=== PATIENT | male | born 1940 | race Caucasian/White ===

== ENCOUNTER → 2021-01-15 02:09 | Outpatient (CLI) | payer MEDICARE, SELFPAY ==
[2021-01-16 14:53] LABS: SARS-CoV-2 RNA PCR Negative
== END ==
PROVIDERS: PCP Family Medicine; Visit Provider Internal Medicine Cardiovascular Disease
DX: Z01.812 Encounter for preprocedural laboratory examination (principal); Z20.822 Contact with and (suspected) exposure to COVID-19
CPT/HCPCS: C9803; U0003; U0005

== ENCOUNTER 2021-01-18 02:52 | Day surgery (SDC) | payer MEDICARE, SELFPAY ==
[2021-01-17 16:28] VITALS: BMI 29.0
[2021-01-18] VITALS (15 sets, daily range): BP systolic 131–172; BP diastolic 58–86; PULSE 45–59; RESP 11–18; TEMP 36.4–36.6; O2SAT 95–99; BMI 28.5
--- NOTE | 2021-01-18 09:26 | WPDMODSED ---
Moderate Sedation Note-Pt Data Patient Data Allergies Allergy/AdvReac Type Severity Reaction Status Date / Time losartan Allergy Unknown dystonic Verified 01/17/21 16:33 reaction amoxicillin [From Augmentin] Allergy Rash Verified 01/17/21 16:33 clavulanic acid Allergy Rash Verified 01/17/21 16:33 [From Augmentin] Home Medications Medication Instructions Recorded Confirmed Type polyethylene glycol 3350 17 gram 17 gm PO DAILY 11/03/19 01/17/21 History oral powder packet acetaminophen 650 mg 650 mg PO Q12H 03/04/20 01/17/21 History tablet,extended release aspirin 81 mg tablet,delayed 81 mg PO QAM tablet 03/04/20 01/17/21 History release fluticasone propionate 50 1 spray NASAL QPM ml 03/04/20 01/17/21 History mcg/actuation nasal spray,suspension multivitamin 1 tablet PO QAM tablet 03/04/20 01/17/21 History vit C 250 mg-vit E 200 unit-zinc 1 cap PO DAILY cap 03/04/20 01/17/21 History ox 12.5 rp-hkajaz-lauqth-zeax capsule terazosin 5 mg capsule See Rx Instructions .ROUTE 05/18/20 01/17/21 Rx .COMPLEX #180 cap bisoprolol 10 1 tablet PO QAM #90 tablet 10/11/20 01/17/21 Rx mg-hydrochlorothiazide 6.25 mg tablet amlodipine 10 mg tablet 10 mg PO DAILY 11/30/20 01/17/21 History atorvastatin 40 mg tablet 40 mg PO DAILY 11/30/20 01/17/21 History famotidine 20 mg tablet 20 mg PO DAILY 11/30/20 01/17/21 History nitroglycerin 0.4 mg sublingual 0.4 mg SUBLINGUAL Q5M PRN #180 11/30/20 01/17/21 Rx tablet tablet acidophilus-pectin, citrus 1 cap PO DAILY 01/17/21 01/17/21 History [Acidophilus Probiotic] calcium carbonate-vit D3-min 1 tablet PO DAILY 01/17/21 01/17/21 History carboxymethylcellulose sodium 1 drp OPHTHALMIC (EYE) DAILY 01/17/21 01/17/21 History [Refresh] loperamide 2 mg PO Q6H PRN 01/17/21 01/17/21 History omega 2-rvu-cjv-fish oil [Fish Oil] 1 cap PO DAILY 01/17/21 01/17/21 History sodium chloride 5 % 1 drp EACH EYE DAILY 01/17/21 01/17/21 History Current Medications: Active Medications Sodium Chloride (Normal Saline Iv) 500 mls @ 100 mls/hr IV CONT .Q5H [facility] Sedation/Anesthesia: No previous sedation/anesthesia problems (including family history). [facility] Past Medical History Medical History (Reviewed 11/30/20 @ 11:59 by Mary Ann Fuentes [facility]) Cataract Hernia 2007 Surgical History Surgical History (Reviewed 11/30/20 @ 11:59 by Mary Ann Fuentes [facility]) H/O colonoscopy 2017 H/O transurethral resection of prostate Family History Family History (Reviewed 11/30/20 @ 11:59 by Mary Ann Fuentes [facility]) Father Hypertension Family history of coronary artery disease Family history of congestive heart failure Grandparent Hypertension Cerebrovascular accident Family history of malignant neoplasm of stomach Family history of malignant neoplasm Family history of coronary artery disease Mother Hypertension Family history of coronary artery disease Sibling Hypertension Family history of coronary artery disease Social History Social History (Reviewed 11/30/20 @ 11:59 by Mary Ann Fuentes [facility]) Years smoked: 19 Smoking status: Former smoker Alcohol intake: current Living arrangements: with family Gender identity (if verbalized by the patient): Male Sexual Orientation (if Verbalized by the Patient): Straight or Heterosexual Spiritual care concerns: No Mod Sed Physical Exam Physical Exam Pre Procedural Exam: Normal: Airway Hours since solid foods: 10 Hours since liquid intake: 10 Internal Medicine - PN: Obj Da Meds/Results Medications: Active Medications Generic Name Dose Route Start Last Admin Trade Name Freq PRN Reason Stop Dose Admin Sodium Chloride 500 mls @ 100 mls/hr 01/18/21 08:30 Normal Saline Iv IV CONT .Q5H YAJAIRA ASA Classification/Sedation ASA Classification/Sedation ASA Class: III Emergent: No Risks: Risks, benefits and alternatives explained and patient/family accepted plan for
--- NOTE | 2021-01-18 09:27 | WPDHPUPDATE1 ---
History and Physical Update Update Date/Time: 01/18/21 09:27 History and Physical has been reviewed, including an updated exam of the patient. There are NO changes in the patient's condition. Risks, benefits, and alternatives have been discussed and questions answered. Patient agrees to proceed with procedure.
--- NOTE | 2021-01-18 10:37 | WPDCARDPROC ---
Cardiac Cath Procedure Note Date of procedure:: 01/18/21 Performing physician:: Casey Osullivan MD Procedure Procedure note:: LEFT HEART CATHETERIZATION AND CORONARY ANGIOGRAM REPORT DATE OF PROCEDURE:01/18/2021 INDICATION FOR PROCEDURE: Angina, abnormal stress test BRIEF CLINICAL HISTORY: 80-year-old male with hypertension, dyslipidemia and BPH. Patient has been experiencing episodes of substernal chest discomfort, both exertional and nonexertional. His recent MPI from 11/22/2020 showed ECG portion of the stress test positive for ischemia; partially reversible defect involving apical, septal, inferoseptal leon; LVEF 63%. Patient has been on optimal tolerable medical treatment, and continued to have episodes of chest discomfort. Therefore, he was brought to the dental laboratory supervisor for coronary angiogram. Benefits and risks of the procedure were discussed with the patient in depth, and informed consent was obtained prior to the procedure. Risks of the procedure include but are not limited to vascular complications including groin hematoma, retroperitoneal bleed, vessel perforation; periprocedural ND, cardiac arrhythmias, stroke, contrast induced nephropathy, and . After discussing all the benefits, risks and alternatives, patient was willing to proceed with the procedure. PROCEDURES PERFORMED: 1. Left heart catheterization- Selective left and right coronary angiogram; left ventriculogram and hemodynamic assessment 2. Moderate sedation-CPT code 69321 MODERATE SEDATION: Midazolam 1 mg; fentanyl 25 mcg; Start time 0959 , Stop time 1028 ; Total bgja-fx-efwo time 29 minutes; Corinna Thompson RN was trained observer for moderate sedation. ACCESS SITE: Right common femoral artery PROCEDURE NOTE: After obtaining informed consent, patient was brought to catheterization lab and prepped and draped in a usual sterile manner. After local anesthesia with lidocaine, right common femoral artery access was taken with micropuncture needle followed by insertion of a 5 [place] sheath. Selective left and right coronary angiogram was performed using 5 [place] JL4 and JR4 catheters respectively. Orthogonal views were taken. Next, a 5 [place] pigtail catheter was advanced in the LV cavity and was flushed with normal saline. LV pressure measurement was performed. After this, left ventriculogram was performed. The catheter was flushed again, and gradient across the aortic valve was measured on the pullback of the catheter. The 5 [place] sheath was secured in place which will be taken out in the dental laboratory supervisor holding area, manual pressure was used for local hemostasis. Patient tolerated procedure well without any immediate procedure related complications. FINDINGS: LEFT MAIN CORONARY: the left main coronary artery is a medium to large caliber vessel, minor irregularities seen in the distal segment. LEFT ANTERIOR DESCENDING ARTERY: The LAD is a medium caliber vessel in the proximal most segment; divides into 2 branches in a bifurcating fashion. The proximal branch /diagonal branch is a medium to large caliber vessel with minor irregularities in the proximal segment. The distal/ main branch which goes towards the LV apex is has subtotal occlusion distal to the major diagonal branch and fills slowly and appears diminutive, probably due to the underfilling of the vessel. LEFT CIRCUMFLEX ARTERY: The left circumflex artery is a medium caliber vessel, gives rise to medium size OM 1 branch with mild 20-40% stenosis in the proximal segment, and small size OM 2 branch. RIGHT CORONARY ARTERY: RCA is a medium to large caliber vessel with mild diffuse disease in the mid-distal segment. The vessel gives rise to medium-size PDA branch and diminutive PLV branch. LEFT VENTRICULOGRAM: ventricular ectopy was seen during left ventriculogram; Overall LV systolic function is preserved, ejection fraction about 60-65%; LVEDP 18 mmHg. HEMODYNAMIC ASSESSMENT: Opening pressure 165/63 mmHg , closi
--- NOTE | 2021-01-18 17:23 | SUR.PHASEII ---
1720 IV d/c'd cath intact, pressure applied. D/C instructions reviewed with patient and his , questions answered. 172 Pt transported to [facility] via wheelchair, where his drove him home in a private vehicle.
== END 2021-01-18 17:27 | disposition home or self-care (01) ==
PROVIDERS: PCP Family Medicine; Visit Provider Internal Medicine Cardiovascular Disease
PROC: 4A023N7 Measurement of Cardiac Sampling and Pressure, Left Heart, Percutaneous Approach (ICD-10-PCS; CPT 93452; principal; 2021-01-18 09:30)
DX: I25.10 Atherosclerotic heart disease of native coronary artery without angina pectoris (principal); R94.39 Abnormal result of other cardiovascular function study; R07.9 Chest pain, unspecified; I10 Essential (primary) hypertension; E78.5 Hyperlipidemia, unspecified; Z87.891 Personal history of nicotine dependence
CPT/HCPCS: 93458; C1887; C1894; C9803; J0461; J1644; J2250; J3010; J7040; U0003; U0005

== ENCOUNTER 2022-05-17 14:02 | Outpatient (CLI) | payer MEDICARE, SELFPAY ==
--- NOTE | ~2022-05-17 | US_ITS ---
EXAMINATION: US art doppler w press BREANN DUTTA DATE: 05/17/2022 15:56 INDICATION: Right leg claudication. TECHNIQUE: Segmental pressures and plethysmographic and Doppler waveforms of the brachial and lower e xtremity arteries were obtained. COMPARISON: None. FINDINGS: Right and left brachial artery pressures of 135 mm Hg and 136 mm Hg, respectively, are concordant (no rmal difference <= 30 mmHg). The right high-thigh pressure index is 1.29 (normal > 1.2). The right ankle-brachial index (TEODORA) is 0 .70 (normal >= 0.9-1.0). The right great toe-brachial index (TBI) is 0.51 (normal >= 0.65). The right lower extremity segmental pressure gradients are increased between the lower thigh and below-knee me asurements and between the below knee and ankle measurements (normal gradients <= 20-30 mmHg between adjacent levels on the same leg or the same levels on the two legs). Arterial Doppler waveforms are t riphasic in common femoral artery and biphasic from superficial femoral artery to the ankle. The left high-thigh pressure index is 1.23. The left TEODORA is 1.06. The left TBI is 0.65. Arterial Dopp ler waveforms are biphasic from common femoral artery to the ankle. IMPRESSION: 1. Moderately decreased right TEODORA, consistent with right-sided arterial occlusive disease. Reviewed, dictated and finalized at location A. IMPRESSION: 1. Moderately decreased right TEODORA, consistent with right-sided arterial occlusi ve disease.
== END 2022-05-17 14:03 | disposition home or self-care (01) ==
PROVIDERS: PCP Family Medicine; Visit Provider Internal Medicine Cardiovascular Disease
DX: I73.9 Peripheral vascular disease, unspecified (principal)
CPT/HCPCS: 93923

== ENCOUNTER 2022-08-09 12:32 | Outpatient (CLI) | payer MEDICARE, SELFPAY ==
--- NOTE | ~2022-08-09 | XR_ITS ---
XR ankle LT min 3V DATE: 08/09/2022 13:13 INDICATION: Fall yesterday. Left ankle diffuse pain TECHNIQUE: 4 views of left ankle COMPARISON: None FINDINGS: There is mild lateral soft tissue swelling. No fracture or dislocation of the ankle or disruption of the ankle mortise is detected. Moderate plantar and posterior calcaneal enthesopathy without associated erosive change or periostiti s. IMPRESSION: Mild lateral soft tissue swelling Plantar and posterior calcaneal enthesopathy Reviewed, dictated and finalized at location A. MOGRAPH CHIEF
--- NOTE | ~2022-08-09 | XR_ITS ---
XR wrist RT min 3V DATE: 08/09/2022 13:14 INDICATION: Fall yesterday. Posterior right wrist pain TECHNIQUE: 4 views COMPARISON: None FINDINGS: There is a comminuted intra-articular virtually nondisplaced fracture of the distal radius. The distal ulna appears intact. Radiocarpal alignment is preserved. There is osteoarthritis at the triscaphe and first carpometacarpal and particularly second and third metacarpophalangeal joints and interphalangeal joint of the first digit. IMPRESSION: Comminuted intra-articular virtually nondisplaced fracture of distal radius Polyarticular osteoarthritis Reviewed, dictated and finalized at location A. FACTURER REPRESENTATIVE IMPRESSION: Comminuted intra-articular virtually nondisplaced fracture of dista l radius Polyarticular osteoarthritis
--- NOTE | ~2022-08-09 | XR_ITS ---
XR sacrum coccyx min 2V DATE: 08/09/2022 13:13 INDICATION: Fall yesterday. Pain when laying down at sacrum and coccyx TECHNIQUE: AP, angled AP and lateral views of sacrum and coccyx COMPARISON: None FINDINGS: The pubic symphysis and sacroiliac joints are intact. No sacral or coccygeal fracture or chica ne destruction is detected. Moderately severe degenerative disc disease is noted at L2-3, L3-4, L4-5. Prominent calcification of the abdominal aorta and iliac arteries. Moderate bilateral hip osteoarthritis. IMPRESSION: No sacral or coccygeal fracture is detected Reviewed, dictated and finalized at location A. TECHNICIAN
== END 2022-08-09 12:33 | disposition home or self-care (01) ==
PROVIDERS: PCP Family Medicine; Visit Provider Nurse Practitioner
DX: M53.3 Sacrococcygeal disorders, not elsewhere classified (principal); M19.031 Primary osteoarthritis, right wrist; M19.072 Primary osteoarthritis, left ankle and foot; M77.32 Calcaneal spur, left foot
CPT/HCPCS: 72220; 73110; 73610

== ENCOUNTER → 2022-10-05 11:25 | Outpatient (CLI) | payer MEDICARE, SELFPAY ==
--- NOTE | ~2022-10-05 | XR_ITS ---
Left foot Technique: AP and lateral views were obtained. Clinical History: Pain Findings: No acute fracture or dislocation is seen. Osseous alignment is anatomic. Possible pes cavus deformity There is advanced degenerative change of the first metatarsophalangeal joint. Remaining narayan int spaces are preserved. Soft tissues are unremarkable. Impression: No acute fracture or dislocation. Advanced degenerative change of the first metatarsophalangeal joint. Possible pes cavus deformity. Reviewed, dictated and finalized at location M. DING ANALYST/SUPERVISOR Impression: No acute fracture or dislocation. Advanced degenerative change of the first metatarsophalangeal joint. Possible pes cavus deformity.
--- NOTE | ~2022-10-05 | XR_ITS ---
Left ankle Technique: AP, oblique, and lateral views were obtained. Clinical History: Pain Findings: No acute fracture or dislocation is seen. Osseous alignment is anatomic. Ankle mortise and other visualized joint spaces are preserved. Soft tissues are otherwise unremarkable. Impression: Unremarkable left ankle. Reviewed, dictated and finalized at location . ER SOFTWARE ENGINEER Impression: Unremarkable left ankle.
== END ==
PROVIDERS: PCP Family Medicine; Visit Provider Nurse Practitioner
DX: M19.072 Primary osteoarthritis, left ankle and foot (principal)
CPT/HCPCS: 73610; 73620

== ENCOUNTER → 2022-10-05 14:13 | Outpatient (CLI) | payer MEDICARE, SELFPAY ==
--- NOTE | ~2022-10-05 | US_ITS ---
Duplex Sonography of the left extremity: Indication: Edema Findings: Sagittal and transverse B-mode images as well as color-flow imaging were performed on the l eft femoral and popliteal veins. B-mode examination was done without and with compression in the tra nsverse plane. There is good visualization of the common femoral, proximal profunda femoral, superfi cial femoral, greater saphenous, and popliteal veins. Normal flow was seen on color-flow imaging. No rmal compressibility was demonstrated. Left posterior tibial and peroneal veins also appear patent. Impression: No evidence of deep vein thrombosis involving the left lower extremity. Reviewed, dictated and finalized at location . ORATE DEVELOPMENT OFFICER Impression: No evidence of deep vein thrombosis involving the left lower extremity.
== END ==
PROVIDERS: PCP Nurse Practitioner; Visit Provider Nurse Practitioner
DX: R60.0 Localized edema (principal)
CPT/HCPCS: 93971

== ENCOUNTER 2023-02-16 15:30 | Emergency (ER) | payer MEDICARE, SELFPAY ==
--- NOTE | ~2023-02-16 | XR_ITS ---
EXAMINATION: XR ankle LT min 3V DATE: 02/16/2023 16:55 INDICATION: Left ankle pain and swelling TECHNIQUE: Anteroposterior, lateral, mortise, and additional oblique view of the ankle were obtained. COMPARISON: None. FINDINGS: Bone alignment is normal. There is no fracture. There is soft tissue swelling of ankle. Pos terior and plantar calcaneal enthesophytes are noted. IMPRESSION: 1. Ankle soft tissue swelling without acute osseous abnormality. Reviewed, dictated and finalized at location F.
[2023-02-16 15:59] VITALS: BP 185/97; PULSE 60; RESP 17; TEMP 36.4; O2SAT 97
--- NOTE | 2023-02-16 17:14 | ED.GENADULT ---
HPI - General Adult General Chief complaint: Extremity Injury, Lower Stated complaint: left foot swollen x 1 week Time Seen by Provider: 02/16/23 16:19 History of Present Illness HPI narrative: this 82-year-old male patient with significant past medical history of left lower extremity edema, wrist fracture, coronary artery disease, hypertension, CKD, Crohn's disease, BPH, hyperlipidemia and prediabetes presents to the emergency room requesting that his left ankle be re-evaluated. He reportedly tripped over his dog 2-3 months ago and has had intermittent edema ever since then in the left lower extremity. Patient notes that he was evaluated when the injury initially occurred and there was no noted fracture of the ankle. Since then with the continued swelling approximately 1 month ago he had a DVT ruled out. Patient states that the swelling in the ankle goes away with rest and elevation, however as the day goes on it continues to swell. Patient notes that last night when he woke up he did have some pain higher up in the leg as well, but cannot identify exactly where the pain was. He denies any erythema, Bruising,palpable cord and no shortness of breath. He denies any chest pain. patient states he would just like to have a recheck to make sure nothing is wrong. Related Data Home Medications Medication Instructions Recorded Confirmed polyethylene glycol 3350 17 gram 17 gm PO DAILY 11/03/19 11/30/22 oral powder packet (Miralax) acetaminophen 650 mg 650 mg PO Q12H 03/04/20 11/30/22 tablet,extended release (Tylenol 8 Hour) aspirin 81 mg tablet,delayed 81 mg PO QAM 03/04/20 11/30/22 release fluticasone propionate 50 1 spray intranasal QPM 03/04/20 11/30/22 mcg/actuation nasal spray,suspension (Flonase Allergy Relief) multivitamin 1 tablet PO QAM 03/04/20 11/30/22 vit C 250 mg-vit E 200 unit-zinc 1 cap PO DAILY 03/04/20 11/30/22 ox 12.5 bi-sicvbp-dlzzjv-zeax capsule (ICaps AREDS2) amlodipine 10 mg tablet 10 mg PO DAILY 11/30/20 11/30/22 famotidine 20 mg tablet (Pepcid) 20 mg PO DAILY 11/30/20 11/30/22 acidophilus 100 million 1 cap PO DAILY 01/17/21 11/30/22 cell-pectin, citrus 10 mg capsule calcium carb 600 mg(1,500 mg)-vit 1 tablet PO DAILY 01/17/21 11/30/22 D3 200 unit-minerals chewable tablet carboxymethylcellulose sodium 1 % 1 drp ophthalmic (eye) DAILY 01/17/21 11/30/22 eye liquid gel drops omega 3-dfp-zvi-fish oil 1,200 mg 1 cap PO DAILY 01/17/21 11/30/22 (144 mg-216 mg) capsule (Fish Oil) sodium chloride 5 % 1 drp EACH EYE DAILY 01/17/21 11/30/22 atorvastatin 40 mg tablet 80 mg PO DAILY 07/11/21 11/30/22 cilostazol 100 mg tablet 100 mg PO BID 08/01/22 11/30/22 melatonin 3 mg capsule 3 mg PO QHS 10/05/22 11/30/22 Allergies Allergy/AdvReac Type Severity Reaction Status Date / Time losartan Allergy Unknown dystonic Verified 11/30/22 13:08 reaction amoxicillin [From Augmentin] Allergy Rash Verified 11/30/22 13:08 clavulanic acid Allergy Rash Verified 11/30/22 13:08 [From Augmentin] Review of Systems Review of Systems: Full 12 point review of systems was performed and is otherwise negative except as noted in HPI. All systems reviewed & are unremarkable except as noted in HPI and below PMFSH Past Medical History Medical History Cataract (~2018) 2017 cataract 2018 cataract Hernia (~2007) 2007 Surgical History Surgical History H/O colonoscopy 2017 H/O transurethral resection of prostate Hx of tonsillectomy (~1948) Family History Family History Father Hypertension Family history of coronary artery disease Family history of congestive heart failure Grandparent Hypertension Cerebrovascular accident Family history of malignant neoplasm of stomach Family history of malignant neop
[2023-02-16 17:45] LABS: D Dimer 0.51 ug/mL (<0.48)
== END 2023-02-16 18:45 | disposition home or self-care (01) ==
PROVIDERS: Emergency Provider Nurse Practitioner Adult Health; PCP Nurse Practitioner
DX: R60.0 Localized edema (principal)
CPT/HCPCS: 36415; 73610; 85380; 99283

== ENCOUNTER 2023-07-09 13:12 | Outpatient (CLI) | payer MEDICARE, SELFPAY ==
[2023-07-09 20:26] LABS: Alanine Aminotransferase 30 U/L (6-50); Albumin Level 4.1 g/dL (3.5-5.1); Alkaline Phosphatase 72 U/L (38-126); Anion Gap 7 mmol/L (8-16); Aspartate Amino Transferase 59 U/L (17-59); Blood Urea Nitrogen 21 mg/dL (9-20); Calcium 8.6 mg/dL (8.4-10.2); Carbon Dioxide 26 mmol/L (22-30); Chloride 106 mmol/L (98-107); Cholesterol 102 mg/dL (0-200); Estimated Glomerular Filt Rate 58; Glucose 116 mg/dL (65-110); HDL Direct 45 mg/dL; Potassium 3.7 mmol/L (3.4-5.0); Sodium 139 mmol/L (137-145); Triglycerides 89 mg/dL (<150)
[2023-07-09 20:37] LABS: LDL Cholesterol Direct 38 mg/dL
[2023-07-09 22:53] LABS: Hemoglobin A1C 5.7 % (<5.7)
== END 2023-07-09 13:13 | disposition home or self-care (01) ==
LOC: ANHGOSHLAB 13:14
PROVIDERS: PCP Nurse Practitioner; Visit Provider Nurse Practitioner
DX: E78.2 Mixed hyperlipidemia (principal); N18.30 Chronic kidney disease, stage 3 unspecified; R73.03 Prediabetes
CPT/HCPCS: 36415; 80053; 80061; 83036

== ENCOUNTER 2023-11-12 11:24 | Outpatient (CLI) | payer MEDICARE, SELFPAY ==
[2023-11-12 20:12] LABS: Alanine Aminotransferase 27 U/L (6-50); Alkaline Phosphatase 75 U/L (38-126); Anion Gap 3 mmol/L (8-16); Aspartate Amino Transferase 36 U/L (17-59); Blood Urea Nitrogen 25 mg/dL (9-20); Calcium 8.5 mg/dL (8.4-10.2); Carbon Dioxide 27 mmol/L (22-30); Chloride 109 mmol/L (98-107); Cholesterol 93 mg/dL (0-200); Estimated Glomerular Filt Rate > 60; Glucose 112 mg/dL (65-110); HDL Direct 44 mg/dL; Potassium 3.4 mmol/L (3.4-5.0); Sodium 139 mmol/L (137-145); Triglycerides 69 mg/dL (<150)
[2023-11-12 20:23] LABS: LDL Cholesterol Direct 45 mg/dL
[2023-11-12 21:56] LABS: Hemoglobin A1C 6.2 % (<5.7)
== END 2023-11-12 11:25 | disposition home or self-care (01) ==
LOC: ANHGOSHLAB 11:26
PROVIDERS: PCP Family Medicine; Visit Provider Nurse Practitioner
DX: E78.2 Mixed hyperlipidemia (principal); R73.03 Prediabetes
CPT/HCPCS: 36415; 80053; 80061; 83036

== ENCOUNTER 2023-12-14 14:29 | Outpatient (CLI) | payer MEDICARE, SELFPAY ==
--- NOTE | 2023-12-14 14:47 | ECHO_ITS ---
Patient Info Name: Óscar Orourke Age: 83 years : 1940 Gender: Male Ht: 74 in Wt: 225 lbs BSA: 2.33 m2 HR: 62 bpm BP: 150 / 72 mmHg Technical Quality: Fair Exam Date: 12/14/2023 3:12 PM Exam Location: Echo Lab Patient Status: Outpatient Admit Date: 12/14/2023 Staff Ordering Physician: Sissy Eldridge Exercise Specialist: Jp Gutiérrez RDCS Attending Provider: Sissy Eldridge Referring Physician: Chente DOMINGUEZ; Exam Type: CA echo doppler color flow Study Info Indications R07.9 - Chest pain, unspecified Complete two-dimensional, color flow and Doppler transthoracic echocardiogram is performed. Summary 1. Complete two-dimensional, color flow and Doppler transthoracic echocardiogram is performed. 2. Left ventricular chamber dimension is normal. 3. Left ventricular systolic function is normal, estimated at 60-65%. 4. The left ventricular diastolic function is grade I diastolic dysfunction. 5. E/e' 14 is mildly elevated. 6. Left atrial chamber dimension is mildly enlarged. 7. There is mild mitral valve regurgitation. 8. No pulmonary hypertension, estimated pulmonary arterial systolic pressure is 26 mmHg. 9. There is trace pulmonic regurgitation. Left Ventricle E/e' 14 is mildly elevated. Left ventricular chamber dimension is normal. Left ventricular systolic function is normal, estimated at 60-65%. The left ventricular diastolic function is grade I diastolic dysfunction. Right Ventricle Right ventricular systolic function is normal and with normal TAPSE 2.4 cm. Right ventricular chamber dimension is normal. Left Atria Left atrial chamber dimension is mildly enlarged. Right Atria Right atrial chamber dimension is normal. Aortic Valve The aortic valve is trileaflet. There is no aortic valve stenosis. There is no aortic valve regurgitation. Pulmonic Valve There is trace pulmonic regurgitation. Mitral Valve There is no mitral valve stenosis. There is mild mitral valve regurgitation. Tricuspid Valve There is no tricuspid valve regurgitation. No pulmonary hypertension, estimated pulmonary arterial systolic pressure is 26 mmHg. Pericardium/Pleural There is no pericardial effusion. Inferior Vena Cava Normal inferior vena cava with >50% collapse upon inspiration consistent with normal right atrial pressure, 5 mmHg. Aorta The aortic root size at the sinus of Valsalva is normal. Left Ventricular Outflow Tract Name Value Normal LVOT 2D LVOT Diameter 2.2 cm LVOT Doppler LVOT Peak Gradient 3 mmHg LVOT Mean Gradient 2 mmHg LVOT VTI 23 cm LVOT VTI/AV VTI Ratio 1.0 LVOT Stroke Volume 87 ml LVOT CO 5.0 l/min LVOT CI 2.1 l/min/m2 Pulmonic Valve Name Value Normal RVOT Doppler RVOT Peak Gradient 2 mmHg
== END 2023-12-14 14:30 | disposition home or self-care (01) ==
PROVIDERS: PCP Family Medicine; Visit Provider Nurse Practitioner
DX: R07.9 Chest pain, unspecified (principal); I34.0 Nonrheumatic mitral (valve) insufficiency
CPT/HCPCS: 93306

== ENCOUNTER 2025-03-30 10:54 | Outpatient (CLI) | payer MEDICARE, SELFPAY ==
--- OUTSIDE RECORDS SUMMARY | 2025-03-30 11:02 | XMS_ITS | Clinical Summary ---
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 Gender Identity Not on file Sexual Orientation Not on file Plan of Treatment Health Maintenance Due Date Last Done Comments DTaP, Tdap and Td Vaccines ( 1 - Tdap) 11/21/1959 Pneumococcal Vaccine: 50+ Ye ars (1 of 1 - PCV) 1990 Zoster Vaccines (1 of 2) 1990 RSV Immunization or 60+ Years (1 - 1-dose 75+ series) 11/21/2015 COVID-19 Vaccine ( - 2023-2 5 season) 2024 Meningococcal B Vaccine Aged Out No l onger eligible based on patient's age to complete this topic Meningococcal Vaccine Aged Out No bry mitzi eligible based on patient's age to complete this topic RSV Immunizations Under 20 Months Aged Out No longer eligible based on patient's age to complete this topic
--- OUTSIDE RECORDS SUMMARY | 2025-03-30 11:02 | XMS_ITS | Clinical Summary ---
Author Organization [facility] [address] Address [address] [place] [address] Care Team Providers Care Extract Mixer Name Role Phone Ellyn Meneses DO Primary Care Provider [phone]- [phone] Allergies Active Allergy Reactions Criticality Noted Date Comments Amoxicillin-Pot Clavulanate Rash Medium 11/18/19 21 Losartan Dizziness Low 11/17/2020 Blurred vision Medications bisoprolol-hydr oCHLOROthiazide (ZIAC) 10-6.25 mg per tablet Take 1 tablet by mouth daily 10/12/2020 Active fish oil-dha-epa 1,200-144-216 mg capsule Take 1 Caplet by mouth daily Active calcium carbonate-vitam in D3 1,500 mg (600mg elemental) -800 unit per tablet Take 1 tablet by mouth daily Active acidophilus-pec tin, citrus 100 million cell-10 mg capsule Take by mouth daily Active acetaminophen ER (TYLENOL) 650 mg 8 hr tablet Take 1 tablet (650 mg total) by mouth every 8 (eight) hours as needed for pain Active multivitamin capsule Take 1 capsule by mouth daily Active vitamins A,C,E-zinc-shanita er 7,160-113-100 rndc-ld-izdg tablet,delayed release (DR/EC) Take by mouth daily Active sodium chloride 5 % ophthalmic ointmentIndicat ions:Corneal Edema 1 drop nightly Active polyethylene glycol (MIRALAX) 17 gram packetIndicatio ns:constipation Take 1 packet (17 g total) by mouth daily Active loperamide (IMODIUM) 2 mg capsule Take 1 capsule (2 mg total) by mouth 4 (four) times a day as needed for diarrhea Active terazosin (HYTRIN) 5 mg capsule TAKE 2 CAPSULES BY MOUTH EVERY DAY AT BEDTIME 12/06/2023 Active clopidogreL (PLAVIX) 75 mg tablet Take 1 tablet (75 mg total) by mouth daily 90 tablet 6 07/16/2024 07/16/20 25 Active cilostazoL (PLETAL) 100 mg tablet TAKE 1 TABLET BY MOUTH TWICE DAILY 200 tablet 2 09/23/2024 Active atorvastatin (LIPITOR) 80 mg tablet TAKE 1 TABLET BY MOUTH DAILY 100 tablet 2 09/23/[address] (PROTONIX) 40 mg EC tablet TAKE 1 TABLET BY MOUTH IN THE MORNING 100 tablet 2 12/08/2024 Active amLODIPine (NORVASC) 10 mg tablet TAKE 1 TABLET BY MOUTH DAILY 100 tablet 2 02/26/2025 Active Active Problems Problem Noted Date Diagnosed Date Anemia 05/17/2022 Chest pain 01/18/2021 Overview (01/18/2021): Added automatically from request for surgery [id number] Abnormal stress test 01/18/2021 Overview (01/18/2021): Added automatically from request for surgery [id number] Immunizations Immunization Administration Dates Next Due Influenza, Quadrivalent, Spl it, Preservative Free, Intramuscular 06/16/2019 Influenza, Trivalent, High D ose, Split, Preservative Free, Intramuscular 06/14/2018 Influenza, Unspecified 03/24/2014,03/03/2014 Pfizer SARS-CoV-2 Monovalent Vaccination (12+ Yrs) PURPLE 11/02/2020 Surgical History Surgery Date Site/Laterality Comments TRANSURETHRAL RESECTION OF PROSTATE TONSILLECTOMY HERNIA REPAIR 09/10/2007 - 09/09/2008 EYE SURGERY Bilateral cataract ANGIOPLASTY / STENTING FEMORAL CATARACT EXTRACTION PROSTATE SURGERY Medical History Medical History Date Comments Hypertension Cataracts, bilateral Arthritis Enlarged prostate CAD (coronary artery disease) GERD (gastroesophageal reflux disease) Family History Medical History Relation Name Comments Heart disease Father Óscar Evanson Hypertension Father Óscar Sunil Orourke Stroke Mother Frieda Orourke Relation Name Status Comments Brother Alive Father Óscar Orourke (Age 75) Mother Frieda Orourke (Age 103) Social History Tobacco Use Types Packs/Day Years Used Date Smoking Tobacco: Former Cigarettes 1.5 29.2 0 09/10/1955 - 11/17/1984 Smokeless Tobacco: Never Tobacco Cessation:Counseling Given: Not Answered AUDIT-C Answer Date Recorded Q1: How often do you have a drink containing alc ohol? 2-3 times a week 05/09/2022 Q2: How many drinks containi ng alcohol do you have on a typical day when you are drinking? 5 or 6 05/09/2022 Q3: How often do you have si x or more drinks on one occasion? Monthly 05/09/2022 Personal Safety Answer Date Recorded Have you ever been in or are you currently in a harmful physical or emotional relationship or is someone making you feel afraid or unsafe? Denies 01/04/2024 Sex and Gender Information Value Date Recorded Sex Assigned at Not on file Legal Sex Male 8:20 AM CDT Gender Identity Male 02/21/2021 5:07 PM CDT Sexual Orientation Straight 02/21/2021 5: 07 PM CDT Obstetrics History Last Filed Vital Signs Vital Sign Reading Time Taken Comments Blood Pressure 134/70 07/16/2024 1:22 PM TECHNICAL OPERATIONS MANAGER Pulse 69 07/16/2024 1:22 PM TECHNICAL OPERATIONS MANAGER Temperature 36.8 C (98.2 F) 01/04/2024 10:04 AM CDT Respiratory Rate 19 01/04/2024 6:05 PM CDT Oxygen Saturation 95% 07/16/2024 1:22 PM TECHNICAL OPERATIONS MANAGER Inhaled Oxygen Concentration - - Weight 103.9 kg (229 lb) 07/16/2024 1:22 PM TECHNICAL OPERATIONS MANAGER Height 188 cm (6' 2) 07/16/2024 1:22 PM TECHNICAL OPERATIONS MANAGER Body Mass Index 29.4 07/16/2024 1:22 PM TECHNICAL OPERATIONS MANAGER Plan of Treatment Health Maintenance Due Date Last Done Comments Depression Screening 1940 DTaP/Tdap/Td Vaccine (1 - Tdap) 11/21/1951 Hepatitis B Screening 1958 Pneumococcal vaccine 65+ (1 of 1 - PCV) 1990 Zoster Vaccine (1 of 2) 1990 Well Visit 65+ 2005 Covid-19 Vaccine (2023-2 5 season) 2024 11/02/2020 Fall Risk Assessment 01/03/2025 01/04/2024 Influenza Vaccine (Season Ended) 2025 06/16/2019, 06/14/2018, 03/24/2014, Additional history exists Medical Devices Implanted Type Area Property Management Accountant Device Identifier Shelf Expiration Date Model / Serial / Lot I AND [employer] [id number] Synergy 3mm 28mm 144cm Radiopaque 1 Access Port Inflation Lumen - [id number] Implanted:Qty: 1 on 01/21/2021 by Casey Osullivan MD at [facility] I AND [employer] [id number] 300 / / Daig Sang [id number] Device Closure Angio-Seal Vip Bondek-Plus Polyglyd L70 Cm Od6 Fr Odsec.035 In Vascular - [id number] Implanted:Qty: 1 on 01/21/2021 by Casey Osullivan MD at [facility] Sang [id number] / / [employer] JotSpot Synergy Xd Monorail 3mm 24mm 144cm Delivery System 1 Access Port [id number] - [id number] Implanted:Qty: 1 on 01/04/2024 by Casey Osullivan MD at [facility] I AND [employer] 06/12/2025 [id number] 300 / / [id number] [employer] JotSpot Synergy Xd Monorail 3.5mm 24mm 144cm Delivery System 1 Access [id number] - [id number] Implanted:Qty: 1 on 01/04/2024 by Casey Osullivan MD at [facility] I AND [employer] 07/24/2025 [id number] 350 / / [id number] [facility] MEDICARE ADVANTAGE Care Teams Extract Mixer Relationship Specialty Start Date End Date Ellyn Meneses DO PCP - General Family Medicine 11/12/20
--- OUTSIDE RECORDS SUMMARY | 2025-03-30 11:02 | XMS_ITS | Referral Summary ---
Author Organization [facility] [address] Address [address] [place] [address] Care Team Providers Care Gas Operations Superintendent Name Role Phone Ellyn Meneses DO Primary Care Provider [phone] Allergies Active Allergy Reactions Criticality Noted Date [...] mouth daily Active vitamins A,C,E-zinc-shanita er 7,160-113-100 vjyp-hu-itvq tablet,delayed release (DR/EC) Take by mouth daily [...] (01/18/2021): Added automatically from request for surgery [id number] Abnormal stress test 01/18/2021 Overview (01/18/2021): Added automatically from request for surgery [id number] Immunizations Immunization Administration Dates Next Due Influenza, Quadrivalent, Spl it, Preservative Free, Intramuscular 06/16/2019 Influenza, Trivalent, High D ose, Split, Preservative Free, Intramuscular 06/14/2018 Influenza, Unspecified 03/24/2014,03/03/2014 Pfizer SARS-CoV-2 Monovalent Vaccination (12+ Yrs) PURPLE 11/02/2020 Social History Tobacco Use Types Packs/Day Years [...] Orientation Straight 02/21/2021 5: 07 PM CDT Last Filed Vital Signs Vital Sign Reading Time Taken Comments Blood Pressure 134/70 07/16/2024 1:22 PM MORTGAGE LOAN COUNSELOR Pulse 69 07/16/2024 1:22 PM MORTGAGE LOAN COUNSELOR Temperature 36.8 C (98.2 F) 01/04/2024 10:04 AM CDT Respiratory Rate 19 01/04/2024 6:05 PM CDT Oxygen Saturation 95% 07/16/2024 1:22 PM MORTGAGE LOAN COUNSELOR Inhaled Oxygen Concentration - - Weight 103.9 kg (229 lb) 07/16/2024 1:22 PM MORTGAGE LOAN COUNSELOR Height 188 cm (6' 2) 07/16/2024 1:22 PM MORTGAGE LOAN COUNSELOR Body Mass Index 29.4 07/16/2024 1:22 PM MORTGAGE LOAN COUNSELOR Plan of Treatment Not on file Medical Devices Implanted Type Area Nuclear Powerplant Supervisor Device Identifier Shelf Expiration Date Model / Serial / Lot [employer] [id number] Synergy 3mm 28mm 144cm Radiopaque 1 Access Port Inflation Lumen - [id number] Implanted:Qty: 1 on 01/21/2021 by Casey Osullivan MD at [facility] [employer] Sang [id number] 300 / / [id number] Device Closure Angio-Seal Vip Bondek-Plus Polyglyd L70 Cm Od6 Fr Odsec.035 In Vascular - [id number] Implanted:Qty: 1 on 01/21/2021 by Casey Osullivan MD at [facility] [employer] [id number] / / [employer] Synergy Xd Monorail 3mm 24mm 144cm Delivery System 1 Access Port [id number] - [id number] Implanted:Qty: 1 on 01/04/2024 by Casey Osullivan MD at [facility] 06/12/2025 [id number] 300 / / [id number] [employer] [facility] Synergy Xd Monorail 3.5mm 24mm 144cm Delivery System 1 Access [id number] - [id number] Implanted:Qty: 1 on 01/04/2024 by Casey Osullivan MD at [facility] 07/24/2025 [id number] 350 / / [id number] Insurance [id number] [id number] [facility] MDCR HMO REF [facility] Address: [address] [address] [place] [address] [address] [id number] [facility] MEDICARE ADVANTAGE [facility] Address: [address] [address] [place] [address] Care Teams Gas Operations Superintendent Relationship Specialty Start Date End Date Ellyn Meneses DO PCP - General Family Medicine 11/12/20
--- OUTSIDE RECORDS SUMMARY | 2025-03-30 11:02 | XMS_ITS | Continuity of Care Document ---
Author Organization [facility] Address [address] [place] [address] Phone Care Team Providers Care Business Objects Consultant Name Role Phone Wilkins OD, Larry Unavailable Unavailable Procedures Procedure Date Eye Exam & Treatment Refraction Eye Exam & Treatment Refraction Eye Exam & Treatment Eye Exam & Treatment Refraction Advance Directives Directive Yes / No Effective Date File Name No Information Encounters Encounter Description Practice Location Reason(s) For Visit Diagnoses Date Provider Providers Copied on Encounter [facility], [address] [place] [address] [address], [place], [place], [id number], tel:[phone] [facility] No Information Charanjit-[id number] 3-201 0 Wilkins OD Larry. [address], [place], [place], [facility], . tel:[phone] [facility], [address], [place], [place], [id number], [place] tel:[phone] [facility] No Information January-2 9-200 9 Wilkins OD Larry. [address], [place], [place], [facility], . tel:[phone] [facility], [address], [place], [place], [id number], tel:[phone] [facility] No Information May-2 9-200 8 Wilkins OD Larry. [address] , [address], [place], [address], [place]. tel:[phone] [facility], [address], [place], [place], [id number], [place] tel:[phone] [facility] No Information 2-200 7 Wilkins OD Larry. [address] [facility] [address] , [address], [place], [address], [place]. tel:[phone] Family History Family Member Type Diagnosis Age At Onset No Information Payers Payer name Insurance type Covered libertarian ID Authoriza tion(s) No Information Social History Type Description Quantity Date Captured Comments Sex Male Smoking Status No Information Chief Complaint And Reason For Visit No Information Reason For Referral Reason For Referral No Information History Of Present Illness Encounter Date Complaint History Of Prese nt Illness No Information Functional Status Date Functional Assessmen t No Information Instructions Date Instruction Additional Infor mation No Information Assessments Type Assessment Date No Information Patient Care Teams Name Effective Dates (start - stop) Status Members No Information
[2025-03-30 13:42] LABS: Alanine Aminotransferase 24 U/L (6-50); Albumin Level 4.1 g/dL (3.5-5.1); Alkaline Phosphatase 72 U/L (38-126); Anion Gap 9 mmol/L (4-12); Aspartate Amino Transferase 48 U/L (17-59); Bilirubin,Total 1.0 mg/dL (0.2-1.3); Blood Urea Nitrogen 21 mg/dL (9-20); Calcium 8.4 mg/dL (8.4-10.2); Carbon Dioxide 25 mmol/L (22-30); Chloride 104 mmol/L (98-107); Cholesterol 99 mg/dL (0-200); Estimated Glomerular Filt Rate > 60; Glucose 130 mg/dL (65-110); HDL Direct 45 mg/dL; Potassium 3.2 mmol/L (3.4-5.0); Sodium 138 mmol/L (137-145); Total Protein 7.1 g/dL (6.3-8.2); Triglycerides 105 mg/dL (<150)
[2025-03-30 13:45] LABS: Hematocrit 36.3 % (42.0-52.0); Hemoglobin 11.8 g/dL (14.0-18.0); Mean Corpuscular HGB Conc 32.5 g/dl (32-36); Mean Corpuscular Hemoglobin 29.0 pg (26-34); Mean Corpuscular Volume 89.2 fl (80-100); Platelet Count Result 161 k/mm3 (150-375); Red Blood Count 4.07 M/mm3 (4.6-6.20); White Blood Count 6.1 K/mm3 (4.5-10.0)
[2025-03-30 14:46] LABS: MALB Creatinine Ratio 9.7 mg/g (0-30)
[2025-03-30 15:51] LABS: Hemoglobin A1C 6.1 % (<5.7)
== END 2025-03-30 10:55 | disposition home or self-care (01) ==
LOC: ANHGOSHLAB 10:57
PROVIDERS: PCP Family Medicine; Visit Provider Nurse Practitioner
DX: E78.2 Mixed hyperlipidemia (principal)
CPT/HCPCS: 36415; 80053; 80061; 82043; 82306; 83036; 85027

== ENCOUNTER 2025-08-13 15:31 | Outpatient (CLI) | payer MEDICARE, SELFPAY ==
--- NOTE | ~2025-08-13 | XR_ITS ---
EXAMINATION: XR chest 2V, 08/13/2025 16:09 SENIOR MILITARY ANALYST HISTORY: cough x 3months, smoked 30 years ago, 37.5ppd COMPARISON: No comparisons available. Technique: 2 views obtained. Findings: Scattered bilateral small infiltrates with small effusions. No pneumothorax. Heart is normal size. Mediastinal and hilar contours are within normal limits. Bony thorax no acute abnormality. Impression: Early bilateral pneumonia Reviewed, dictated and finalized at location P. OR MILITARY ANALYST Impression: Early bilateral pneumonia
== END 2025-08-13 15:32 | disposition home or self-care (01) ==
LOC: GOSHIMG 15:32
PROVIDERS: PCP Family Medicine; Visit Provider Family Medicine
DX: R05.9 Cough, unspecified (principal); J18.9 Pneumonia, unspecified organism
CPT/HCPCS: 71046